=== PATIENT | female | born 1935 | race Caucasian/White ===

== ENCOUNTER 2018-10-11 14:21 | Inpatient (IN) | payer OTHER, MEDICAID ==
[~2018-10-11] VITALS: Ht 157.5 cm; Wt 38.1 kg
--- NOTE | ~2018-10-11 | PROC ---
[address] [address] PROCEDURE REPORT Name: SAM YO Room: [address] IN .R.#: [id number] Admission: 10/11/18 Attend Phys: Madhav Sullivan MD Discharge: 10/16/18 Date of : 33 Report #: [id number] THIS REPORT FOR: //name// For GI report, please see the Provation report in Perceptive 7 content. By: 0642Medical Records Staff YURI /MATTHEW
[~2018-10-11 14:21] MED LIST: ALDACTONE25 MG PO; AVAPRO 150 MG150 M1 PO; FLAGYL500 MG PO; FLORASTOR250 MG PO; LEVOTHYROXIN0.125 M1 PO; NORVASC5 MG PO; PRAVACHOL20 MG PO; TOPROL XL25 MG PO
[2018-10-11 14:39] VITALS: BP 150/63
[2018-10-11] MEDS ORDERED: PHENERGAN 25 MG25 M1 PO (14:45)
[2018-10-11] MEDS ORDERED: AIRBORNE EFFER1 EACH PO (14:47)
[2018-10-11 15:08] LABS: ABSOLUTE BASOPHILS 0.1 thou/uL (0.0-0.2); ABSOLUTE EOSINOPHILS 0.1 thou/uL (0.0-0.7); ABSOLUTE LYMPHOCYTES 1.5 thou/uL (0.8-5.3); ABSOLUTE MONOCYTES 0.8 thou/uL (0.0-1.2); ABSOLUTE NEUTROPHILS 5.5 thou/uL (1.6-8.1); BASOPHILS 1.3 %; HEMATOCRIT 33.1 % (37.0-47.0); LYMPHOCYTES 19.2 %; MCH 30.6 pg (26.0-34.0); MCHC 33.2 g/dL (28.0-37.0); MCV 92.2 fL (80.0-100.0); MONOCYTES 9.5 %; MPV 9.1 fl. (7.2-11.1); NUCLEATED RBCS 0 /100WBC; PLATELET COUNT* 266 thou/uL (150-400); RBC 3.59 mil/uL (4.20-5.00); RDW-CV 13.3 % (10.5-14.5); WBC 7.9 thou/uL (4.0-11.0)
[2018-10-11 15:24] LABS: ANION GAP 7 mmol/L (7-16); BUN 23 mg/dL (7-18); CALCIUM 9.4 mg/dL (8.5-10.1); CHLORIDE 100 mmol/L (98-107); CO2 32 mmol/L (21-32); CREATININE 1.1 mg/dL (0.6-1.3); GLUCOSE 106 mg/dL (70-99); POTASSIUM 4.3 mmol/L (3.5-5.1); SODIUM 139 mmol/L (136-145); TROPONIN-I LEVEL <0.06 ng/mL (<0.06)
[2018-10-11 15:27] LABS: ALBUMIN 2.9 g/dL (3.4-5.0); ALKALINE PHOSPHATASE 105 U/L (46-116); SGOT 14 U/L (15-37); SGPT 17 U/L (30-65); TOTAL BILIRUBIN 0.3 mg/dL (<0.1-1.0); TOTAL PROTEIN 7.3 g/dL (6.4-8.2)
[2018-10-11 16:02] LABS: URINE BILIRUBIN NEGATIVE (Negative); URINE BLOOD NEGATIVE (Negative); URINE CLARITY CLEAR; URINE COLOR YELLOW; URINE GLUCOSE-RANDOM NEGATIVE (Negative); URINE KETONES NEGATIVE (Negative); URINE LEUKOCYTES-REFLEX TRACE (Negative); URINE PROTEIN NEGATIVE (Negative); URINE SPECIFIC GRAVITY 1.025 (1.005-1.030); URINE UROBILINOGEN 0.2 E.U./dl (0.2-1.0)
[2018-10-11 16:03] LABS: URINE NITRITE-REFLEX POSITIVE (Negative)
[2018-10-11 16:10] LABS: BACTERIA-REFLEX >30 Many /HPF (None Seen); CASTS None Seen /LPF (None Seen); CRYSTALS None Seen /LPF (None Seen); URINE RBC 0-2 Rare /HPF (0-2); URINE WBC-REFLEX 6-15 Few /HPF (0-5)
[2018-10-11 16:29] LABS: SQUAMOUS NONE SEEN /LPF (0-3)
[2018-10-11 19:55] VITALS: BP 113/53
[2018-10-11 21:00] VITALS: BP 153/48
--- NOTE | 2018-10-11 21:37 | NUR ---
PT ARRIVED ON UNIT FROM ER AT 2054. PT STABLE. VITALS STABLE, CHARTED. IV IN L AC PATENT, INFUSING. PT BELONGINGS WITH PT. A&Ox4. WILL CONTINUE TO MONITOR.
--- NOTE | 2018-10-12 04:34 | NUR ---
PT REMAINED A&Ox4 THROUGHOUT SHIFT. VITALS STABLE. UP STAND BY ASSIST. IV IN L AC PATENT, INFUSING. DENIED PAIN. HOURLY ROUNGING COMPLETE. FALL PRECAUTIONS IN PLACE. CALL LIGHT WITHIN REACH. WILL CONTINUE TO MONITOR.
[2018-10-12 07:39] LABS: HEMATOCRIT 30.6 % (37.0-47.0); HEMOGLOBIN 10.2 gm/dL (12.0-15.0); MCH 30.7 pg (26.0-34.0); MCHC 33.3 g/dL (28.0-37.0); MCV 92.2 fL (80.0-100.0); MPV 9.2 fl. (7.2-11.1); NUCLEATED RBCS 0 /100WBC; PLATELET COUNT* 229 thou/uL (150-400); RBC 3.32 mil/uL (4.20-5.00); WBC 6.2 thou/uL (4.0-11.0)
[2018-10-12 07:55] LABS: CALCIUM 8.7 mg/dL (8.5-10.1); CREATININE 1.1 mg/dL (0.6-1.3); POTASSIUM 4.5 mmol/L (3.5-5.1)
[2018-10-12 08:00] VITALS: BP 132/57
[2018-10-12 09:05] LABS: ABSOLUTE LYMPHOCYTES 0.7 thou/uL (0.8-5.3); ABSOLUTE NEUTROPHILS 5.5 thou/uL (1.6-8.1); PLATELET ESTIMATE ADEQUATE
--- NOTE | 2018-10-12 12:00 | EKG ---
[place] [address] ELECTROCARDIOGRAM REPORT Name: SAM YO Room: [address] ADM IN M.R.#: [id number] Admission: 10/11/18 Attend Phys: Madhav Sullivan MD Discharge: Date of : 34 Report #: [id number] THIS REPORT FOR: //name// [facility] ED Test Date: 2018-10-11 Test Time: 14:50:57 Pat Name: SAM YO Department: Room: [facility] Gender: F Patient Office Rep: MATTHEW : 1935 Requested By: Corine Menendez Order Number: [id number] MD: Kelvin Houston Measurements Intervals [place] Rate: 70 P: 71 WI: 224 QRS: -90 QRSD: 136 T: 83 QT: 447 QTc: 483 Interpretive Statements Atrial-sensed ventricular-paced complexes No further analysis attempted due to paced rhythm Compared to ECG 10/19/2016 16:20:47 No significant changes Electronically Signed On 10-12-2018 12:00:34 HEALTH ANALYTICS CONSULTANT by Kelvin Houston [email or web address] <ELECTRONICALLY SIGNED> By: Kelvin Houston MD, FACC 10/12/18 1200 1450 1450 Kelvin Houston MD, [facility] /EPI
[2018-10-12 16:50] VITALS: BP 138/68
--- NOTE | 2018-10-12 16:55 | NUR ---
SHIFT NOTE - PT UP TO BR WITH STANDBY ASSIST MULTIPLE TIMES THIS SHIFT. FAMILY AT BEDSIDE FOR MOST OF THIS SHIFT. WILL CONTINUE TO MONITOR.
[2018-10-12 20:00] VITALS: BP 139/43
--- NOTE | 2018-10-13 04:50 | NUR ---
PT REMAINED A&Ox4 THROUHGOUT SHIFT. VITALS STABLE. IV IN L AC PATENT, SL. TYLENOL GIVEN FOR DISCOMFORT. CALL LIGHT WITHIN REACH. HOURLY ROUNDING COMPLETE. FALL PRECAUTIONS IN PLACE. WILL CONTINUE TO MONITOR.
[2018-10-13 08:00] VITALS: BP 153/53
[2018-10-13 15:51] VITALS: BP 145/37
--- NOTE | 2018-10-13 16:05 | NUR ---
SHIFT NOTE - PT TO BR WITH MINIMAL ASSIST. IV SL. DENIES ANY PAIN/NAUSEA. WILL CONTINUE TO MONITOR.
[2018-10-13 22:40] VITALS: BP 156/46
[2018-10-13 23:49] LABS: INFLUENZA A ANTIGEN None Detected (None Detect); INFLUENZA B ANTIGEN None Detected (None Detect)
--- NOTE | 2018-10-14 07:26 | NUR ---
PT SLEPT WELL. LAC SL. ROOM AIR SAT 94%, UP WITH ASSIST TO BR TO VOID WITHOUT DIFFICULTY. NO LABS THIS MORNING. RT TX GIVEN ORDERED. ICT SUPPORT TECHNICIANS COUGH HEARD. FLU SWAB NEGATIVE. POSSIBLE DISCHARGE HOME TODAY. ABLE TO USE CALL LITE AND MAKE NEEDS KNOWN.
[2018-10-14 07:50] VITALS: BP 189/50
[2018-10-14 16:24] VITALS: BP 152/51
--- NOTE | 2018-10-14 16:24 | NUR ---
ASSESSMENT COMPLETE. PT IS ALERT AND ORIENTED X4. PT HAD GI CONSULT FOR CHRONIC INCONT DIARRHEA. PT STARTED ON PREP FOR FLEX SIG TOMORROW WITH DR ATKINS. PT DENIES PAIN AND N/V. PT IS UP WITH ONE ASSIST. PT IS ON ROOM AIR, VSS. SKIN INTACT. IV IN LEFT AC, SALINE LOCKED. PT TAKES MEDICATIONS WITHOUT DIFFICULTY. PT HAS NO OTHER CONCERNS AT THIS TIME. SEE ASSESSMENT AND VITALS FOR OTHER DETAILS. CALL LIGHT WITHIN REACH, WILL CONTINUE PLAN OF CARE
--- NOTE | 2018-10-14 16:25 | NUR ---
SW met with pt to complete initial assessment, introduce self, and SW role. Pt alert, oriented, pleasant. Pt lives at home alone. Pt says she has several friends who are supportive. Pt has caregiver in home services 5 days a week for 4 hours a day who help with cooking, cleaning, etc. Pt hopeful to possible increase the caregiving hours. Pt has a RW and a cane and says she wonders about having a wc, SW discussed criteria for insurance to cover and pt said that maybe she isn't quite ready for a wc yet. Pt says she might need some type of therapy follow up as she says she feels she is weak. SW to continue to follow to assist with safe dc planning.
[2018-10-15] VITALS: BP 151/55
--- NOTE | 2018-10-15 07:20 | NUR ---
PT FINISHED MAG CITRATE PREP ORDERED JUST AFTER MIDNIGHT. LATEST STOOL LIQUID WITH SOME MUSHY BROWN PARTICLES. INSTRUCTED TO NOTIFY STAFF WITH NEXT BM, VERBALIZES UNDERSTANDING. LAC SL. UP TO BSC OVERNIGHT TO VOID AND STOOLS. NO LABS THIS MORNING. NPO AT 0800 FOR FLEX SIG THIS AFTERNOON. HAS DENIED PAIN OR PROBLEMS. O2 2L PLACED BY RT OVERNIGHT WHILE SLEEPING. PACEMAKER. ABLE TO USE CALL LITE AND MAKE NEEDS KNOWN.
[2018-10-15 07:51] VITALS: BP 148/55
[2018-10-15 12:04] VITALS: BP 141/55; BP 151/55
--- NOTE | 2018-10-15 18:25 | NUR ---
ASSESSMENT COMPLETE. PT ALERT AND ORIENTED X4. DENIES PAIN AND N/V. BOWEL PREP GIVEN OVERNIGHT FOR FLEX SIG. PT LEFT FOR PROCEDURE AROUND 1320, BACK TO UNIT AT 1825. PT DENIES ANY NEEDS AND CONCERNS. VSS. TOLERATING REGULAR DIET. SEE PROCEDURE NOTE FROM GI. PT IS FALL RISK, BED ALARM ON. SEE ASSESSMENT AND VITALS FOR OTHER DETAILS. CALL LIGHT WITHIN REACH, WILL CONTINUE PLAN OF CARE
--- NOTE | 2018-10-15 18:30 | CON ---
[address] [address] CONSULTATION Name: SANAZSAM R Room: [address] IN M.R.#: [id number] Admission: 10/11/18 Attend Phys: Madhav Sullivan MD Discharge: Date of : 34 Report #: [id number] THIS REPORT FOR: //name// CC: Madhav Yang [facility] DATE OF SERVICE: 10/14/2018 REASON FOR CONSULT: Persistent diarrhea, incontinence and urgency. HISTORY OF PRESENT ILLNESS: This is an 83-year-old female who is known to us as she has had history of C. diff in the past. The patient was initially admitted for bronchitis and possibly pneumonia. She has been receiving treatment for the same. She reports that she has significant amount of urgency and loose stool to a point that this is affecting her life. She is unable to leave the house to go to grocery stores as she is fearful that she may have an accident. She denies any significant gas and bloating. She also denies any hematochezia or melena. PAST MEDICAL HISTORY: Significant for history of hyperlipidemia, hypothyroidism, history of C. diff, chronic diarrhea and urgency, hypertension, hysterectomy, tonsillectomy, cataract surgery, coronary artery disease, peripheral vascular disease with stenting in bilateral legs, arthritis, CHF, history of pacemaker placement. ALLERGIES: SIGNIFICANT TO PENICILLIN. MEDICATIONS: Please refer to MAR. SOCIAL HISTORY: The patient lives at home alone. 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 PHYSICAL EXAMINATION: VITAL SIGNS: Reveals blood pressure of 189/50, respirations 16, pulse 70, and temperature 98.1. LUNGS: Clear. CARDIOVASCULAR: Regular. ABDOMEN: Soft, nontender, nondistended. Bowel sounds are positive. NEUROLOGIC: The patient is alert and oriented x 3. LABORATORY DATA: Reveal sodium of 138, potassium 4.5, BUN is 22, creatinine 1.1, glucose 221. WBC is 6.2 with hemoglobin of 10.2 and platelet of 229. IMAGING: CT of abdomen and pelvis was obtained on admission. There is no acute process noted in the abdomen and pelvis. There [place] [address] CONSULTATION Name: SAM YO Room: [address] IN [facility]#: [id number] Admission: 10/11/18 Attend Phys: Madhav Sullivan MD Discharge: Date of : 34 Report #: [id number] with associated prominence of bilateral renal pelvis noted. There is evidence of previous cholecystectomy, hysterectomy and appendectomy per this imaging study. ASSESSMENT AND PLAN: The patient with diarrhea, urgency and some degree of incontinence due to the same. I will consider a flex sigmoidoscopy with biopsy of the colon to assure that she does not have microscopic colitis. 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 diff infection little over a year ago. If these biopsies are negative, we may consider introducing Colestid to see if this will get her some control. <ELECTRONICALLY SIGNED> By: Matty De Souza MD 10/15/18 1830 1204 [id number] De Souza MD /nt
[2018-10-15 23:32] VITALS: BP 133/45
[2018-10-16 04:27] LABS: ABSOLUTE EOSINOPHILS 0.1 thou/uL (0.0-0.7); ABSOLUTE LYMPHOCYTES 1.2 thou/uL (0.8-5.3); ABSOLUTE MONOCYTES 0.8 thou/uL (0.0-1.2); ABSOLUTE NEUTROPHILS 7.7 thou/uL (1.6-8.1); BASOPHILS 0.2 %; CALCIUM 8.6 mg/dL (8.5-10.1); CREATININE 0.9 mg/dL (0.6-1.3); EOSINOPHILS 1.4 %; HEMATOCRIT 34.1 % (37.0-47.0); HEMOGLOBIN 11.3 gm/dL (12.0-15.0); LYMPHOCYTES 12.6 %; MCH 30.3 pg (26.0-34.0); MCV 91.8 fL (80.0-100.0); NUCLEATED RBCS 0 /100WBC; PLATELET COUNT* 233 thou/uL (150-400); POLYS 77.8 %; POTASSIUM 4.1 mmol/L (3.5-5.1); RBC 3.71 mil/uL (4.20-5.00); RDW-CV 13.5 % (10.5-14.5); WBC 9.9 thou/uL (4.0-11.0)
--- NOTE | 2018-10-16 07:08 | NUR ---
PT SLEPT WELL SHE STATES. SL IV. AM LABS DRAWN. TAKING PILLS WHOLE WITH WATER. UP WITH SBA TO BATHROOM TO VOID WITHOUT DIFFICULTY. DENIES PAIN OR PROBLEMS, ANTICIPATING DISCHARGE HOME TODAY. ABLE TO USE CALL LITE AND MAKE NEEDS KNWON.
[2018-10-16] MEDS ORDERED: VENTOLIN HFA 1818 GM INH (09:21)
[2018-10-16] MEDS ORDERED: QUESTRAN PACKET4 GM PO (09:21)
[2018-10-16] MEDS ORDERED: MUCINEX600 MG PO (09:21)
[2018-10-16] MEDS ORDERED: BENTYL 20 MG TA20 M1 PO (09:21)
[2018-10-16] MEDS ORDERED: ACIDOPHILUS1 EAC4 PO (09:24)
[2018-10-16] MEDS ORDERED: BACTRIM DS TAB1 EACH PO (09:24)
[2018-10-16 10:43] VITALS: BP 149/89
--- NOTE | 2018-10-16 10:45 | NUR ---
Following for d/c planning needs. Received order to arrange home health. Spoke with pt and she is agreeable. Pt was given choices and wants to use [facility]. Notified [facility] of d/c and they are able to accept. No other needs identified.
[2018-10-16 10:53] VITALS: BP 149/89
[2018-10-16 11:55] VITALS: BP 149/89
[2018-10-16 12:27] VITALS: BP 149/89
--- NOTE | 2018-10-16 12:32 | NUR ---
ASSESSMENT COMPLETE. PT ALERT AND ORIENTED X4. PT TOLERATING MEALS AND DENIES PAIN AND N/V. PT UP WITH ONE ASSIST. HOME HEALTH SET UP FOR PATIENT WITH CASE MANAGEMENT. DISCHARGE INSTRUCTIONS AND PRESCRIPTIONS GIVEN. PT LEFT VIA WHEELCHAIR TO PERSONAL VEHICLE WITH FAMILY. SEE ASSESSMENT AND VITALS FOR OTHER DETAILS.
--- NOTE | 2018-10-17 16:08 | PATH ---
[address] [address] PATHOLOGY RPT PROCEDURE Name: SAM YO Room: [address] IN M.R.#: [id number] Admission: 10/11/18 Date of : 33 Discharge: 10/16/18 Report #: [id number] Path Case #: [id number] [facility] Accession Number: [id number] . 01 Material submitted: . RANDOM COLON BIOPSIES . 01 Clinical history: . None provided . 02 Diagnosis: Random colon biopsies: - Normal colonic mucosa. (CHRISTINA:pit 10/17/2018) QTP/10/17/2018 . 02 Electronically signed: . Roderick Manuel MD, Pathologist NPI- [id number] . 01 Gross description: . The specimen is received in formalin, labeled "Sam Yo, random colon biopsies" and consists of multiple fragments of dodson-rocha tissue measuring 1.1 x 0.9 x 0.2 cm in aggregate which are entirely submitted in A1. (SDY; 10/16/2018) SYU/SYU . 02 Pathologist provided ICD-10: N39.0, J18.9 . 02 CPT . 968443 Specimen Comment: A courtesy copy of this report has been sent to Specimen Comment: [phone], , . Specimen Comment: Report sent to ,DR COCHRAN / DR MCCOY Performed at: [address], [place], [place] [id number] MD Rickey Mcdonald MD Phone: [phone] Performed at: 02 [facility] [address], [place], [place] [id number] MD Roderick Manuel MD Phone: [phone]
== END 2018-10-16 12:30 | disposition home health service (06) | DRG 177 ==
LOC: M.ERS 14:21 → M.TBA-ER 16:08 → M.3W 16:08
PROVIDERS: Nurse Practitioner Family; ADMIT Internal Medicine
PROC: 0DBH8ZX Excision of Cecum, Via Natural or Artificial Opening Endoscopic, Diagnostic (ICD-10-PCS; principal; 2018-10-15)
DX: J15.6 Pneumonia due to other Gram-negative bacteria (principal); E43 Unspecified severe protein-calorie malnutrition; R65.10 Systemic inflammatory response syndrome (SIRS) of non-infectious origin without acute organ dysfunction; Z68.1 Body mass index [BMI] 19.9 or less, adult; N39.0 Urinary tract infection, site not specified; J18.9 Pneumonia, unspecified organism; J20.9 Acute bronchitis, unspecified; I11.0 Hypertensive heart disease with heart failure; E78.5 Hyperlipidemia, unspecified; E03.9 Hypothyroidism, unspecified; I25.10 Atherosclerotic heart disease of native coronary artery without angina pectoris; I73.9 Peripheral vascular disease, unspecified; K64.4 Residual hemorrhoidal skin tags; B96.20 Unspecified Escherichia coli [E. coli] as the cause of diseases classified elsewhere; J45.909 Unspecified asthma, uncomplicated; K64.8 Other hemorrhoids; K52.839 Microscopic colitis, unspecified; R15.9 Full incontinence of feces; M19.90 Unspecified osteoarthritis, unspecified site; I50.9 Heart failure, unspecified; F17.210 Nicotine dependence, cigarettes, uncomplicated; I25.2 Old myocardial infarction; Z95.0 Presence of cardiac pacemaker; Z90.710 Acquired absence of both cervix and uterus; Z90.49 Acquired absence of other specified parts of digestive tract; Z95.820 Peripheral vascular angioplasty status with implants and grafts; Z79.899 Other long term (current) drug therapy; Z88.6 Allergy status to analgesic agent; Z88.0 Allergy status to penicillin

== ENCOUNTER 2019-02-07 12:20 | Inpatient (IN) | payer OTHER, MEDICAID ==
[~2019-02-07] VITALS: Ht 157.5 cm; Wt 38.1 kg
[~2019-02-07 12:20] MED LIST changes: +ACIDOPHILUS1 EAC4 PO; +AIRBORNE EFFER1 EACH PO; +BACTRIM DS TAB1 EACH PO; +BENTYL 20 MG TA20 M1 PO; +MUCINEX600 MG PO; +PHENERGAN 25 MG25 M1 PO; +QUESTRAN PACKET4 GM PO; +VENTOLIN HFA 1818 GM INH
[2019-02-07 13:14] VITALS: BP 118/43
[2019-02-07 13:50] LABS: ABSOLUTE BASOPHILS 0.1 thou/uL (0.0-0.2); ABSOLUTE EOSINOPHILS 0.2 thou/uL (0.0-0.7); ABSOLUTE LYMPHOCYTES 1.4 thou/uL (0.8-5.3); ABSOLUTE MONOCYTES 0.6 thou/uL (0.0-1.2); ABSOLUTE NEUTROPHILS 4.3 thou/uL (1.6-8.1); BASOPHILS 0.8 %; EOSINOPHILS 2.5 %; HEMATOCRIT 34.9 % (37.0-47.0); HEMOGLOBIN 11.3 gm/dL (12.0-15.0); LYMPHOCYTES 21.5 %; MCH 29.2 pg (26.0-34.0); MCHC 32.5 g/dL (28.0-37.0); MCV 89.8 fL (80.0-100.0); MONOCYTES 9.3 %; MPV 8.8 fl. (7.2-11.1); NUCLEATED RBCS 0 /100WBC; PLATELET COUNT* 233 thou/uL (150-400); POLYS 65.9 %; RBC 3.89 mil/uL (4.20-5.00); RDW-CV 14.1 % (10.5-14.5); WBC 6.5 thou/uL (4.0-11.0)
[2019-02-07 14:01] LABS: POTASSIUM 4.3 mmol/L (3.5-5.1)
[2019-02-07 14:05] LABS: ALBUMIN 3.4 g/dL (3.4-5.0); TOTAL BILIRUBIN 0.2 mg/dL (<0.1-1.0)
[2019-02-07 16:41] LABS: URINE BILIRUBIN NEGATIVE (Negative); URINE BLOOD TRACE (Negative); URINE CLARITY HAZY; URINE COLOR YELLOW; URINE GLUCOSE-RANDOM NEGATIVE (Negative); URINE KETONES NEGATIVE (Negative); URINE LEUKOCYTES-REFLEX TRACE (Negative); URINE NITRITE-REFLEX POSITIVE (Negative); URINE PROTEIN TRACE (Negative); URINE UROBILINOGEN 0.2 E.U./dl (0.2-1.0)
[2019-02-07 16:53] LABS: BACTERIA-REFLEX >30 Many /HPF (None Seen); CASTS None Seen /LPF (None Seen); CRYSTALS None Seen /LPF (None Seen); SQUAMOUS 4-10 Moderate /LPF (0-3); URINE RBC None Seen /HPF (0-2)
--- NOTE | 2019-02-07 16:54 | EKG ---
[place] [address] ELECTROCARDIOGRAM REPORT Name: SAM YO Room: [place] [address] ADM IN .R.#: [id number] Admission: 02/07/19 Attend Phys: Julio Cesar Mcgill, Discharge: Date of : 34 Report #: [id number] THIS REPORT FOR: //name// [facility] ED Test Date: 2019-02-07 Test Time: 13:52:33 Pat Name: SAM YO Department: Room: [facility] Gender: F Rail Equipment Operator: TREY : 1935 Requested By: Remberto Alonso Order Number: [id number] MD: Kelvin Houston Measurements Intervals [place] Rate: 71 P: 86 AL: 229 QRS: -90 QRSD: 139 T: 86 QT: 453 QTc: 493 Interpretive Statements Atrial-sensed ventricular-paced rhythm No further analysis attempted due to paced rhythm Compared to ECG 10/11/2018 14:50:57 No significant changes Electronically Signed On 02-07-2019 16:54:43 CDT by Kelvin Houston [email or web address] <ELECTRONICALLY SIGNED> By: Kelvin Houston MD, [facility] 02/07/19 1654 1352 1352 Kelvin Houston MD, [facility] /EPI
[2019-02-07 18:42] VITALS: BP 180/56
[2019-02-07 18:57] VITALS: BP 179/64
[2019-02-07 20:00] VITALS: BP 166/57
[2019-02-08 08:15] VITALS: BP 165/57
[2019-02-08 16:30] VITALS: BP 187/56
[2019-02-08 20:00] VITALS: BP 138/63
[2019-02-09 04:35] LABS: MCV 88.9 fL (80.0-100.0)
[2019-02-09 04:38] LABS: ABSOLUTE BASOPHILS 0.1 thou/uL (0.0-0.2); ABSOLUTE EOSINOPHILS 0.1 thou/uL (0.0-0.7); ABSOLUTE LYMPHOCYTES 1.2 thou/uL (0.8-5.3); ABSOLUTE MONOCYTES 0.6 thou/uL (0.0-1.2); ABSOLUTE NEUTROPHILS 4.2 thou/uL (1.6-8.1); BASOPHILS 1.1 %; EOSINOPHILS 2.3 %; HEMATOCRIT 34.3 % (37.0-47.0); HEMOGLOBIN 11.1 gm/dL (12.0-15.0); LYMPHOCYTES 18.7 %; MCH 28.7 pg (26.0-34.0); MCHC 32.3 g/dL (28.0-37.0); MONOCYTES 10.4 %; NUCLEATED RBCS 0 /100WBC; PLATELET COUNT* 211 thou/uL (150-400); POLYS 67.5 %; RBC 3.86 mil/uL (4.20-5.00); RDW-CV 13.8 % (10.5-14.5); WBC 6.2 thou/uL (4.0-11.0)
[2019-02-09 08:12] VITALS: BP 189/63
[2019-02-09 16:30] VITALS: BP 175/73
[2019-02-09 20:00] VITALS: BP 159/53
[2019-02-10 08:04] VITALS: BP 148/55
[2019-02-10] MEDS ORDERED: MIRALAX17 GM PO (10:16)
[2019-02-10] MEDS ORDERED: BACTRIM 400-801 EACH PO (10:17)
[2019-02-10 10:48] VITALS: BP 148/55
== END 2019-02-10 13:23 | disposition home health service (06) | DRG 863 ==
LOC: M.ERS 12:20 → M.TBA-ER 16:31 → M.ORTHSURG 16:31
PROVIDERS: Internal Medicine; Physician Assistant; ADMIT Family Medicine
DX: T81.40XA Infection following a procedure, unspecified, initial encounter (principal); E44.1 Mild protein-calorie malnutrition; K61.1 Rectal abscess; N30.00 Acute cystitis without hematuria; Z68.1 Body mass index [BMI] 19.9 or less, adult; M19.90 Unspecified osteoarthritis, unspecified site; I50.9 Heart failure, unspecified; I11.0 Hypertensive heart disease with heart failure; I25.10 Atherosclerotic heart disease of native coronary artery without angina pectoris; E86.0 Dehydration; Y83.8 Other surgical procedures as the cause of abnormal reaction of the patient, or of later complication, without mention of misadventure at the time of the procedure; Y82.8 Other medical devices associated with adverse incidents; Z90.710 Acquired absence of both cervix and uterus; Z95.0 Presence of cardiac pacemaker; Z79.1 Long term (current) use of non-steroidal anti-inflammatories (NSAID); Z79.899 Other long term (current) drug therapy; Z88.6 Allergy status to analgesic agent; Z90.49 Acquired absence of other specified parts of digestive tract; Z98.49 Cataract extraction status, unspecified eye

== ENCOUNTER 2019-10-03 11:40 | Emergency (ER) | payer MEDICARE, MEDICAID ==
[~2019-10-03] VITALS: Ht 157.5 cm; Wt 45.4 kg
[~2019-10-03 11:40] MED LIST changes: +BACTRIM 400-801 EACH PO; +MIRALAX17 GM PO
[2019-10-03] MEDS ORDERED: SPIRONOLACTONE25 MG PO (11:57)
[2019-10-03 12:14] LABS: ABSOLUTE BASOPHILS 0.1 thou/uL (0.0-0.2); ABSOLUTE EOSINOPHILS 0.1 thou/uL (0.0-0.7); ABSOLUTE LYMPHOCYTES 1.2 thou/uL (0.8-5.3); ABSOLUTE MONOCYTES 0.5 thou/uL (0.0-1.2); ABSOLUTE NEUTROPHILS 3.8 thou/uL (1.6-8.1); EOSINOPHILS 1.4 %; HEMATOCRIT 33.3 % (37.0-47.0); LYMPHOCYTES 20.5 %; MCH 30.1 pg (26.0-34.0); MCV 91.2 fL (80.0-100.0); MONOCYTES 9.1 %; MPV 8.7 fl. (7.2-11.1); NUCLEATED RBCS 0 /100WBC; PLATELET COUNT* 179 thou/uL (150-400); RBC 3.65 mil/uL (4.20-5.00); RDW-CV 14.4 % (10.5-14.5); WBC 5.6 thou/uL (4.0-11.0)
[2019-10-03 12:25] LABS: APTT 19.8 Seconds (25.0-31.3); PROTIME 10.1 Seconds (9.20-11.50)
[2019-10-03 12:40] LABS: CALCIUM 8.5 mg/dL (8.5-10.1); CREATININE 1.1 mg/dL (0.6-1.3); POTASSIUM 4.7 mmol/L (3.5-5.1)
[2019-10-03 12:54] LABS: ALBUMIN 3.3 g/dL (3.4-5.0); CK-MB MASS 1.4 ng/mL (<0.5-3.6); TOTAL BILIRUBIN 0.2 mg/dL (<0.1-1.0); TOTAL PROTEIN 6.3 g/dL (6.4-8.2)
[2019-10-03] MEDS ORDERED: NORCO 5-325 TA1 EAC1 PO (13:07)
[2019-10-03 13:22] VITALS: BP 142/46
--- NOTE | 2019-10-03 17:42 | EKG ---
[place] [address] ELECTROCARDIOGRAM REPORT Name: SANAZSAM R Room: [facility]#: [id number] Admission: 10/03/19 Attend Phys: Discharge: 10/03/19 Date of : 34 Date of Service: 10/03/19 1145 Report #: [id number] THIS REPORT FOR: //name// [facility] ED Test Date: 2019-10-03 Test Time: 11:45:57 Pat Name: SAM YO Department: Room: Gender: F Paddock Judge: : 1935 Requested By: Jeferson Trotter Order Number: [id number] MD: Wilder Blair Measurements Intervals [place] Rate: 78 P: 172 WA: 211 QRS: -90 QRSD: 132 T: 85 QT: 437 QTc: 498 Interpretive Statements Atrial-ventricular dual-paced rhythm No further analysis attempted due to paced rhythm Compared to ECG 02/07/2019 13:52:33 Atrial-sensed ventricular-paced complex(es) or rhythm no longer present Electronically Signed On 10-03-2019 17:41:06 DOUGH MIXER HELPER by Wilder Blair [email or web address] <ELECTRONICALLY SIGNED> By: Wilder Blair MD, FACC 10/03/19 1741 1145 1145 Wilder Blair MD, FAC /EPI
== END 2019-10-03 13:23 | disposition home or self-care (01) ==
LOC: M.ERS 11:40
PROVIDERS: Family Medicine
DX: R07.89 Other chest pain (principal); I11.0 Hypertensive heart disease with heart failure; I50.9 Heart failure, unspecified; M19.90 Unspecified osteoarthritis, unspecified site; I25.2 Old myocardial infarction; Z95.1 Presence of aortocoronary bypass graft; Z90.710 Acquired absence of both cervix and uterus; Z88.6 Allergy status to analgesic agent

== ENCOUNTER 2020-08-31 10:35 | Inpatient (IN) | payer MEDICARE, MEDICAID ==
[~2020-08-31] VITALS: Ht 157.5 cm; Wt 41.4 kg
[~2020-08-31 10:35] MED LIST changes: +NORCO 5-325 TA1 EAC1 PO; +SPIRONOLACTONE25 MG PO
[2020-08-31 11:19] VITALS: BP 146/42
[2020-08-31 11:37] LABS: ABSOLUTE BASOPHILS 0.1 thou/uL (0.0-0.2); ABSOLUTE EOSINOPHILS 0.2 thou/uL (0.0-0.7); ABSOLUTE LYMPHOCYTES 1.2 thou/uL (0.8-5.3); ABSOLUTE MONOCYTES 0.6 thou/uL (0.0-1.2); ABSOLUTE NEUTROPHILS 5.8 thou/uL (1.6-8.1); BASOPHILS 1.3 %; EOSINOPHILS 2.1 %; HEMATOCRIT 29.8 % (37.0-47.0); HEMOGLOBIN 9.7 gm/dL (12.0-15.0); LYMPHOCYTES 15.6 %; MCH 29.8 pg (26.0-34.0); MCHC 32.6 g/dL (28.0-37.0); MCV 91.5 fL (80.0-100.0); MONOCYTES 7.1 %; MPV 7.8 fl. (7.2-11.1); NUCLEATED RBCS 0 /100WBC; PLATELET COUNT* 377 thou/uL (150-400); POLYS 73.9 %; RBC 3.26 mil/uL (4.20-5.00); RDW-CV 14.6 % (10.5-14.5); WBC 7.8 thou/uL (4.0-11.0)
[2020-08-31 11:46] LABS: CALCIUM 9.3 mg/dL (8.5-10.1); CREATININE 1.4 mg/dL (0.6-1.3)
[2020-08-31 11:49] LABS: APTT 22.4 Seconds (25.0-31.3); PROTIME 10.3 Seconds (9.20-11.50)
[2020-08-31 11:56] LABS: ALBUMIN 3.2 g/dL (3.4-5.0); TOTAL BILIRUBIN 0.2 mg/dL (<0.1-1.0)
[2020-08-31 14:07] LABS: URINE BILIRUBIN NEGATIVE (Negative); URINE BLOOD NEGATIVE (Negative); URINE CLARITY CLEAR; URINE COLOR YELLOW; URINE GLUCOSE-RANDOM NEGATIVE (Negative); URINE KETONES NEGATIVE (Negative); URINE LEUKOCYTES-REFLEX NEGATIVE (Negative); URINE PROTEIN NEGATIVE (Negative); URINE UROBILINOGEN 0.2 E.U./dl (0.2-1.0)
[2020-08-31 14:08] LABS: URINE NITRITE-REFLEX POSITIVE (Negative)
[2020-08-31 14:23] LABS: BACTERIA-REFLEX >30 Many /HPF (None Seen); CASTS None Seen /LPF (None Seen); CRYSTALS None Seen /LPF (None Seen); SQUAMOUS 0-3 Few /LPF (0-3); URINE RBC 0-2 Rare /HPF (0-2); URINE WBC-REFLEX 0-5 Rare /HPF (0-5)
--- NOTE | 2020-08-31 14:25 | EKG ---
[place] [address] ELECTROCARDIOGRAM REPORT Name: SANAZSAM Travis Room: [facility]#: [id number] Admission: 08/31/20 Attend Phys: Discharge: Date of : 33 Date of Service: 08/31/20 1227 Report #: [id number] THIS REPORT FOR: //name// [facility] ED Test Date: 2020-08-31 Test Time: 12:27:21 Pat Name: SAM YO Department: Room: Gender: F Tester Regulator: [facility] : 1935 Requested By: Alem Benitez Order Number: [id number] MD: Gold Parks Measurements Intervals [place] Rate: 71 P: 73 GA: 219 QRS: -86 QRSD: 137 T: 85 QT: 452 QTc: 492 Interpretive Statements Atrial-sensed ventricular-paced rhythm No further analysis attempted due to paced rhythm Compared to ECG 10/03/2019 11:45:57 AV dual-paced complex(es) or rhythm no longer present Electronically Signed On 08-31-2020 14:25:24 INSPECTOR LINE by Gold Parks [email or web address] <ELECTRONICALLY SIGNED> By: Gold Parks MD, [facility] 08/31/20 1425 1227 1227 Gold Parks MD, [facility] /EPI
[2020-08-31 15:40] VITALS: BP 169/37
[2020-08-31 15:59] VITALS: BP 126/36
--- NOTE | 2020-08-31 18:22 | NUR ---
PT ADMITTED TO ROOM 218 VIA CART FROM ED, REPORT RECEIVED FROM HUBERT CARREON. PT AOX4, NO C/O PAIN OR SHORTNESS OF BREATH OR NAUSEA. PT UP SBA, WEAK AND USES A WALKER AT HOME. ADMISSION ASSESSMENT AND HX COMPLETED CHARTED, GOAL IS TO REMAIN FREE FROM NAUSEA. MEDS PER MAR, HOURLY ROUNDING OBSERVED, FALL PRECAUTIONS IN PLACE, CALL LIGHT W/IN REACH, PT IN ISO FOR COVID RULEOUT, PCR PENDING.
[2020-08-31 21:00] VITALS: BP 96/62
[2020-09-01] VITALS: BP 132/32
[2020-09-01 04:00] VITALS: BP 115/39
--- NOTE | 2020-09-01 04:35 | NUR ---
PT ALERT AND ORIENTED. WEAK, NO REPORTS OF PAIN, NAUSEA OR VOMITING THIS SHIFT. SHE WAS ABLE TO SLEEP WELL. STANDBY ASSIST. RECEIVED ALL MEDS AND FLUIDS SCHEDULED. STRESS INCONTINENCE, ROOM AIR. UNPRODUCTIVE COUGH. WEAKNESS BUT NO MORE HEADACHE. NEURO AND PULMONARY FOLLOWING.
[2020-09-01 04:48] LABS: ABSOLUTE BASOPHILS 0.1 thou/uL (0.0-0.2); ABSOLUTE EOSINOPHILS 0.2 thou/uL (0.0-0.7); ABSOLUTE LYMPHOCYTES 1.4 thou/uL (0.8-5.3); ABSOLUTE MONOCYTES 0.6 thou/uL (0.0-1.2); ABSOLUTE NEUTROPHILS 4.5 thou/uL (1.6-8.1); BASOPHILS 1.4 %; EOSINOPHILS 3.3 %; HEMATOCRIT 25.1 % (37.0-47.0); HEMOGLOBIN 8.2 gm/dL (12.0-15.0); LYMPHOCYTES 20.7 %; MCH 30.2 pg (26.0-34.0); MCHC 32.9 g/dL (28.0-37.0); MCV 91.6 fL (80.0-100.0); MONOCYTES 9.2 %; MPV 7.6 fl. (7.2-11.1); NUCLEATED RBCS 0 /100WBC; PLATELET COUNT* 310 thou/uL (150-400); POLYS 65.4 %; RBC 2.74 mil/uL (4.20-5.00); RDW-CV 14.7 % (10.5-14.5); WBC 6.8 thou/uL (4.0-11.0)
[2020-09-01 04:57] LABS: CALCIUM 8.9 mg/dL (8.5-10.1); CREATININE 1.1 mg/dL (0.6-1.3); POTASSIUM 5.1 mmol/L (3.5-5.1)
[2020-09-01 07:38] VITALS: BP 88/43
--- NOTE | 2020-09-01 07:56 | NUR ---
PT RESTING AT THIS TIME. BP DECREASED,ASYMPTOMATIC.PHYSICIAN MADE AWARE. OTHERWISE STABLE ON RA. VPACED,BBB ON MONITOR. WCTM CLOSELY
[2020-09-01 12:05] VITALS: BP 145/45
--- NOTE | 2020-09-01 13:10 | NUR ---
Pt PUI. CM spoke with Pt's friend via phone. Pt resides at home alone, friend, Paco, is her paid caregiver through her [facility]. Friend works through [employer], 4hrs/day, 5 days/week. Friend assists with housework, transportation and appointments. Pt completes ADL. Pt has a cane and walker that she can use for mobility. Hx of [facility]. Hx of [facility]. Pt does not currently have a DPOA, Pt has no family, friend is willing to be DPOA, if Pt would like to complete one appoint him. CM following for dc needs.
--- NOTE | 2020-09-01 13:59 | NUR ---
PT RESTING AT THIS TIME WITHOUT COMPLAINTS. BP AT NOON TAKEN AND RESULT REPORTED TO THIS NURSE, 44/27. BP RETAKEN WITH MANUAL CUFF AND FOUND TO BE 145/45. WILL CONTINUE TO TAKE BP MANUALLY. PCR RESULTS NEGATIVE. PHYSICIAN MADE AWARE. ISOLATION DCD AND PT TO MOVE TELE STATUS. NOTHING FURTHER AT THIS TIME.CLWR.WCTM
[2020-09-01 16:01] VITALS: BP 127/40
[2020-09-01 20:24] VITALS: BP 164/52
[2020-09-02 00:20] VITALS: BP 148/52
[2020-09-02 04:10] LABS: ABSOLUTE BASOPHILS 0.1 thou/uL (0.0-0.2); ABSOLUTE EOSINOPHILS 0.2 thou/uL (0.0-0.7); ABSOLUTE LYMPHOCYTES 1.5 thou/uL (0.8-5.3); ABSOLUTE MONOCYTES 0.6 thou/uL (0.0-1.2); ABSOLUTE NEUTROPHILS 4.2 thou/uL (1.6-8.1); BASOPHILS 1.6 %; EOSINOPHILS 3.5 %; HEMATOCRIT 25.6 % (37.0-47.0); HEMOGLOBIN 8.5 gm/dL (12.0-15.0); MCHC 33.1 g/dL (28.0-37.0); MCV 90.6 fL (80.0-100.0); MONOCYTES 8.8 %; MPV 7.8 fl. (7.2-11.1); NUCLEATED RBCS 0 /100WBC; PLATELET COUNT* 298 thou/uL (150-400); POLYS 64.1 %; RBC 2.83 mil/uL (4.20-5.00); RDW-CV 14.4 % (10.5-14.5); WBC 6.6 thou/uL (4.0-11.0)
[2020-09-02 04:38] VITALS: BP 150/50
[2020-09-02 04:39] LABS: ALBUMIN 2.6 g/dL (3.4-5.0); CALCIUM 8.8 mg/dL (8.5-10.1); CREATININE 0.9 mg/dL (0.6-1.3); MAGNESIUM 2.1 mg/dL (1.8-2.4); POTASSIUM 4.6 mmol/L (3.5-5.1); TOTAL BILIRUBIN 0.1 mg/dL (<0.1-1.0); TOTAL PROTEIN 5.9 g/dL (6.4-8.2)
[2020-09-02 07:30] VITALS: BP 117/48
--- NOTE | 2020-09-02 10:04 | NUR ---
PT IS ABLE TO COMMUNICATE HER NEEDS TO STAFF EFFECTIVELY. CURRENT PAIN MEDICATION REGIMEN HAS BEEN ADEQUATE FOR CONTROLLING HER PAIN UP TO 0700 THIS MORNING. PT WAS TRANSFERED FORM RM 118 TO RM 214 JUST AFTER 20:00 ON 09/01/20.
[2020-09-02 12:29] VITALS: BP 175/48
--- NOTE | 2020-09-02 12:36 | NUR ---
Lung biopsy today. Anticipate dc in a few days, Pt may need HH. CM to discuss with Pt if she wants to complete a DPOA. Following.
--- NOTE | 2020-09-02 13:32 | 2DMMODE ---
[place] [address] 2 D/M-MODE ECHOCARDIOGRAM Name: YOLIZETTESAM R Room: [address] ADM IN .R.#: [id number] Admission: 08/31/20 Attend Phys: Madhav Sullivan, Discharge: Date of : 33 Date of Service: 09/02/20 1332 Report #: [id number] THIS REPORT FOR: cc: Trey Pineda MD, Bruce D. MD [place], Michael J. MD [facility] ~ APPROVED REPORT Study performed: 09/02/2020 10:40:56 EXAM: Comprehensive 2D, Doppler, and color-flow Echocardiogram Patient Location: In-Patient Room #: [facility] Status: routine BSA: 1.40 HR: 65 bpm BP: 150/50 mmHg Rhythm: NSR Other Information Study Quality: Good Indications Dyspnea 2D Dimensions IVSd: 14.40 (7-11mm) LVOT Diam: 19.55 (18-24mm) LVDd: 25.29 mm PWd: 11.31 (7-11mm) Ascending Ao: 27.04 (22-36mm) LVDs: 11.37 (25-40mm) Aortic Root: 27.64 mm Volumes Left Atrial Volume (Systole) LA ESV Index: 31.60 mL/m2 Aortic Valve AoV Peak Yuriy.: 1.16 m/s AO Peak Gr.: 5.42 mmHg LVOT Max P.45 mmHg AO Mean Gr.: 3.45 mmHg LVOT Mean P.42 mmHg LVOT Max V: 0.93 m/s AO V2 VTI: 31.39 cm LVOT Mean V: 0.76 m/s TESS (VTI): 2.29 cm2 LVOT V1 VTI: 23.92 [place] [address] 2 D/M-MODE ECHOCARDIOGRAM Name: SAM YO Room: [address] IN .R.#: [id number] Admission: 08/31/20 Attend Phys: Madhav Sullivan, Discharge: Date of : 33 Date of Service: 09/02/20 1332 Report #: [id number] Mitral Valve MV Mean Gr.: 3.34 mmHg E/A Ratio: 0.67 MV Decel. Time: 473.76 ms MV E Max Yuriy.: 0.98 m/s MV PHT: 137.39 ms MVA (PHT): 1.60 cm2 TDI E/Lateral E': 24.50 E/Medial E': 19.60 Medial E' Yuriy.: 0.05 m/s Lateral E' Yuriy.: 0.04 m/s Pulmonary Valve PV Peak Yuriy.: 0.81 m/s PV Peak Gr.: 2.60 mmHg Tricuspid Valve RAP Estimate: 5.00 mmHg TR Peak Gr.: 19.04 mmHg RVSP: 24.00 mmHg PA Pressure: 24.00 mmHg Left Ventricle The left ventricle is normal size. There is normal LV segmental wall motion. Mild to moderate concentric left ventricular hypertrophy. Left ventricular systolic function is normal. LVEF is >70%. Grade I - abnormal relaxation pattern. Right Ventricle The right ventricle is normal size. The right ventricular systolic function is normal. Pacemaker lead is present in the right ventricle. Atria The left atrium size is normal. The right atrium size is normal. Aortic Valve Mild aortic valve sclerosis. No aortic regurgitation is present. There is no aortic valvular stenosis. Mitral Valve There is mitral annular calcification. Mild mitral regurgitation. Mild mitral stenosis. Tricuspid Valve The tricuspid valve is normal in structure. Trace tricuspid regurgitation. [place] [address] 2 D/M-MODE ECHOCARDIOGRAM Name: SAM YO Room: [address] IN [facility]#: [id number] Admission: 08/31/20 Attend Phys: Madhav Sullivan, Discharge: Date of : 34 Date of Service: 09/02/20 1332 Report #: [id number] Pulmonic Valve The pulmonary valve is normal in structure. There is no pulmonic valvular regurgitation. Great Vessels The aortic root is normal in size. IVC is normal in size and collapses >50% with inspiration. Pericardium There is no pericardial effusion. <Conclusion> The left ventricle is normal size. Mild to moderate concentric left ventricular hypertrophy. Left ventricular systolic function is normal. LVEF is >70%. Grade I - abnormal relaxation pattern. Pacemaker lead is present in the right ventricle. Mild aortic valve sclerosis. There is mitral annular calcification. Mild mitral regurgitation. Mild mitral stenosis. Trace tricuspid regurgitation. No pulmonary hypertension. IVC is normal in size and collapses >50% with inspiration. <ELECTRONICALLY SIGNED> By: Wilder Blair MD, FACC 09/02/20 133 31 31 Wilder Blair MD, FACC /INF
[2020-09-02 16:45] VITALS: BP 131/41
[2020-09-02 20:00] VITALS: BP 129/42
[2020-09-03] VITALS: BP 139/45
[2020-09-03 03:54] LABS: ABSOLUTE BASOPHILS 0.1 thou/uL (0.0-0.2); ABSOLUTE EOSINOPHILS 0.2 thou/uL (0.0-0.7); ABSOLUTE LYMPHOCYTES 1.3 thou/uL (0.8-5.3); ABSOLUTE MONOCYTES 0.6 thou/uL (0.0-1.2); BASOPHILS 1.4 %; EOSINOPHILS 3.4 %; HEMATOCRIT 25.2 % (37.0-47.0); HEMOGLOBIN 8.1 gm/dL (12.0-15.0); LYMPHOCYTES 20.6 %; MCH 29.5 pg (26.0-34.0); MCHC 32.2 g/dL (28.0-37.0); MCV 91.7 fL (80.0-100.0); MONOCYTES 9.6 %; NUCLEATED RBCS 0 /100WBC; PLATELET COUNT* 279 thou/uL (150-400); RBC 2.75 mil/uL (4.20-5.00); RDW-CV 14.4 % (10.5-14.5); WBC 6.1 thou/uL (4.0-11.0)
[2020-09-03 04:00] VITALS: BP 152/47
[2020-09-03 04:19] LABS: ALBUMIN 2.6 g/dL (3.4-5.0); CALCIUM 8.7 mg/dL (8.5-10.1); POTASSIUM 4.5 mmol/L (3.5-5.1); TOTAL BILIRUBIN 0.1 mg/dL (<0.1-1.0); TOTAL PROTEIN 5.7 g/dL (6.4-8.2)
--- NOTE | 2020-09-03 04:47 | NUR ---
ASSUMED PT CARE AT APPROX 1930. PT IS AWAKE AND ORIENTED X4. PT IS NOT IN RESPIRATORY DISTRESS, NO DESATURATIONS NOTED ON ROOM AIR. PT IS V-PACED ON THE POISER. PT DENIES CHEST PAIN/DISCOMFORT. NO ACUTE CHANGES THROUGHOUT THIS SHIFT. CALL LIGHT WITHIN REACH. HOURLY ROUNDING DONE FOR PT SAFETY. FALL PRECAUTIONS IN PLACE.
[2020-09-03 08:00] VITALS: BP 147/49
[2020-09-03 09:08] LABS: ANTI-DNA SCREEN <1 IU/mL (0-9); ANTI-RNP <0.2 AI (0.0-0.9)
[2020-09-03 12:00] VITALS: BP 135/40
[2020-09-03 14:00] VITALS: BP 147/39
[2020-09-03 20:00] VITALS: BP 129/40
[2020-09-04] VITALS (7 sets, daily range): BP systolic 102–165; BP diastolic 37–52
--- NOTE | 2020-09-04 07:01 | NUR ---
ASSUMED PT CARE AT APPROX 1930. PT IS AWAKE AND ORIENTED X4. PT IS NOT IN RESPIRATORY DISTRESS, NO DESATURATIONS NOTED ON ROOM AIR. PT IS AV-PACED ON THE SOLUTIONS OPERATOR. PT DENIES CHEST PAIN/DISCOMFORT.NO ACUTE CHANGES THROUGHOUT THIS SHIFT. CALL LIGHT WITHIN REACH. HOURLY ROUNDING DONE FOR PT SAFETY. HIGH FALL PRECAUTIONS IN PLACE
[2020-09-04 08:07] LABS: CALCIUM 8.7 mg/dL (8.5-10.1); CREATININE 0.9 mg/dL (0.6-1.3); POTASSIUM 4.7 mmol/L (3.5-5.1)
[2020-09-05 04:14] VITALS: BP 128/38; BP 176/47
[2020-09-05 04:35] LABS: CALCIUM 8.4 mg/dL (8.5-10.1); CREATININE 0.8 mg/dL (0.6-1.3); POTASSIUM 4.1 mmol/L (3.5-5.1)
--- NOTE | 2020-09-05 05:41 | NUR ---
ASSUMED CARE OF PT AFTER REPORT AT 1930. PT A&OX4. VSS. PHYSICAL ASSESSMENT COMPLETED AND CHARTED. PT ON RA. PT TRACING SR/1STDEG/BBB/VPACED ON TELE. PT UPSTANDBY TO BSC. PT DENIES ANY PAIN. NO EPISODE OF NAUSEA. PRODUCT PLANNER TRIED 3X FOR IV INSERTION IN AC BUT FAILED FOR CTA HEAD & NECK. PT ABLE TO SLEEP WELL ON BED. FALL PRECAUTIONS IN PLACE. CALL LIGHT WITHIN REACH.
[2020-09-05 08:00] VITALS: BP 152/52
[2020-09-05 11:36] VITALS: BP 150/47
[2020-09-05 16:32] VITALS: BP 141/41
--- NOTE | 2020-09-05 18:30 | NUR ---
RECEIVED REPORT. ASSUMED CARE OF PT AROUND 0730. AM ASSESSMENT AND VITALS COMPLETED CHARTED. MEDS PER EMAR. BARREL REPAIRER RABIA TO PLACE A LINE APPROPRIATE FOR THE CTA NECK/HEAD TOMORROW. PT HOPES TO DC AFTER THAT. PT UP TO BEDSIDE CHAIR AND COMMODE THIS SHIFT. TOLERATING DIET. NO COMPLAINTS. PT CURRENTLY RESTING IN BED. CALL LIGHT IS WITHIN REACH. HOURLY ROUNDING PERFORMED. FALL PRECAUTIONS IN PLACE.
--- NOTE | 2020-09-05 19:07 | CON ---
[address] [address] CONSULTATION Name: SAM YO Room: [address] ADM IN M.R.#: [id number] Admission: 08/31/20 Attend Phys: Madhav Sullivan MD Discharge: Date of : 34 Report #: [id number] THIS REPORT FOR: cc: Trey Pineda MD, Bruce D. MD ~ Karri Vega MD DATE OF SERVICE: 09/01/2020 CONSULT REQUESTED BY: Madhav Sullivan MD INDICATION FOR CONSULTATION: Lung infiltrate/nodule. HISTORY OF PRESENT ILLNESS: This is an 85-year-old female. Her past medical history includes an extensive history of smoking. It is not well known to me as to whether the patient currently smokes. The patient at this time is able to provide only a limited history. She is admitted with nausea, vomiting, weakness as well as dizziness and headache. She does report that she has some shortness of breath on exertion and sometimes at rest as well; however, she does not describe it to be any different from her baseline. She does have an occasional cough as well with small amounts of sputum production. The patient also does not describe any obvious change in this. There is no chest pain. She does not describe any upper respiratory complaints. No fever or chills. She does not have swelling of lower extremities or calf pain. REVIEW OF SYSTEMS: The patient's review of systems for 12 points is negative except as mentioned above. PAST MEDICAL HISTORY: Peripheral vascular disease, stents in both legs, coronary artery disease, history of myocardial infarction. I do not have any measure of her left ventricular ejection fraction available at this time. Hypertension, hysterectomy, cataract surgery, osteoarthritis, possible history of congestive heart failure, status post pacemaker, hemorrhoidectomy, rectal prolapse. SOCIAL HISTORY: There is an extensive history of smoking. She has been smoking for several decades. It appears likely to me that the patient still smokes; however, the patient did not give a definite answer in this regard. There is no known history of heavy alcohol use or illegal drug use. CURRENT MEDICATIONS: List in [facility] reviewed. HOME MEDICATIONS: List also in [facility] reviewed. FAMILY HISTORY: There is [place] [address] CONSULTATION Name: SAM YO Room: [address] IN [facility]#: [id number] Admission: 08/31/20 Attend Phys: Madhav Sullivan MD Discharge: Date of : 34 Report #: [id number] PHYSICAL EXAMINATION: GENERAL APPEARANCE: The patient was awake. She did not answer orientation questions. At the time of my evaluation, the patient was in COVID-19 isolation and therefore, I was wearing an N95 mask as well as face shield. The patient either had difficulty hearing me or was unable to understand my questions. VITAL SIGNS: She has a pulse of 73 and a blood pressure of 145/45, she was saturating 97%. She was not on supplemental oxygen, afebrile with a temperature of 37.1. HEENT: Head is normocephalic and atraumatic. Pupils are equal. NECK: Does not show raised JVP, asymmetry, mass or lymph nodes. CHEST: Symmetrical expansion on inspection and palpation. On auscultation, breath sounds are decreased. I do not hear any added sounds. HEART: Regular. There is no murmur. ABDOMEN: Soft and nontender. EXTREMITIES: Lower extremities show no edema, no calf tenderness. SKIN: Dry and intact. NEUROLOGICAL: Moves all extremities bilaterally equally and spontaneously with no focal deficit identified. LABORATORY DATA: The patient has had a CTA chest performed yesterday. I reviewed both the films as well as the report. I also compared this with the patient's CT chest performed last year. This is discussed below with the assessment and plan. CT head report is also reviewed. I also reviewed both the chest x-ray films as well as report. The patient's lab work is in [facility], this was reviewed. She has tested negative for both the COVID-19 antigen as well as PCR. ASSESSMENT/PLAN: 1. Pulmonary infiltrates/lung nodules. There are bilateral pulmonary infiltrates. The infiltrate in the left lung looked larger than the CT performed last year. 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 In addition, there is a 9 mm lung nodule, which is seen in the right lung. There can be multiple etiologies of these findings. Considering that the infiltrate in the left lung has been present for a year and has increased in size, the possibility of adenocarcinoma in situ, previously known as bronchoalveolar cell carcinoma of lung does need to be considered. Infections as well as other inflammatory process can also lead to this picture. The infiltrative change in the right lung is likely a scar. In addition, there is a nodule in the right lung, which is just below PET scan resolution. The above findings are likely not related to the patient's current illness. Regardless, I would want to treat her with broad-spectrum antibiotics including atypical coverage for a weeks' duration. The patient is on ceftriaxone already. I went ahead and added Zithromax. I [address] [place] [place] [address] CONSULTATION Name: SAM YO Room: [address] IN .R.#: [id number] Admission: 08/31/20 Attend Phys: Madhav Sullivan MD Discharge: Date of : 34 Report #: [id number] will review with Dr. Grande tomorrow morning regarding the feasibility of performing a CT-guided biopsy from the left lung. The patient will be higher than average risk of having a pneumothorax. Also there will be a possibility of a false negative result at this time and perhaps inclined to hold off on a CT-guided biopsy allowed her to recover from the current illness and obtain an outpatient PET scan first. We will review with radiologist tomorrow and then advise further. Meanwhile, I would like to check an VANESSA as well as rheumatoid arthritis factor as well. 2. Chronic obstructive pulmonary disease. The patient does appear to have significant chronic obstructive pulmonary disease, not previously diagnosed. There is no obvious sign of acute exacerbation. Regardless, considering her acute illness, I went ahead and ordered one dose of Solu-Medrol. I also did order nebulized bronchodilators. We will assess tomorrow morning regarding whether there is an indication to give more steroid. 3. Coronary artery disease/history of congestive heart failure/status post pacemaker placement. I would also like to do an echo. 4. Nausea, vomiting and dizziness/headache. The patient has been fluid resuscitated. The Neurology service is on the case. 5. History of peripheral vascular disease. Thanks for this consultation. <ELECTRONICALLY SIGNED> By: Karri Vega MD 09/05/20 [id number] Vega MD /kayla
[2020-09-05 20:00] VITALS: BP 155/50
[2020-09-06 00:37] VITALS: BP 141/52
[2020-09-06 04:48] VITALS: BP 156/54
--- NOTE | 2020-09-06 05:56 | NUR ---
ASSUMED CARE OF PT AFTER REPORT AT 1930. PT A&OX4. VSS. PHYSICAL ASSESSMENT COMPLETED AND CHARTED. PT ON RA. PT TRACING SR/1ST DEG/BBB/VPACED ON TELE. PT UPSTANDBY TO RESTROOM. PT DENIES ANY PAIN. FALL PRECAUTIONS IN PLACE. CALL LIGHT WITHIN REACH.
[2020-09-06 08:00] VITALS: BP 146/51
--- NOTE | 2020-09-06 09:47 | NUR ---
RECEIVED REPORT AROUND 0715. ASSUMED CARE. VS AND ASSESSMENT CHARTED. PT LYING IN BED. NPO INTACT FOR CT OF HEAD AND NECK. IV INSERTED PER RABIA INFUSION NURSE. IV'S INTACT. HEART MONITOR ATTACHED. NO PAIN REPORTED. MEDS GIVEN PER OCT. CALL LIGHT WITHIN REACH. WILL CONTINUE TO MONITOR.
[2020-09-06 12:47] VITALS: BP 142/43
[2020-09-06 13:52] VITALS: BP 142/43
[2020-09-06] MEDS ORDERED: CEFDINIR300 MG PO (14:27)
--- NOTE | 2020-09-06 15:08 | NUR ---
Pt discharging home today, orders and referral faxed to [facility]
--- NOTE | 2020-09-06 18:35 | NUR ---
RECEIVED DISCHARGE ORDERS. IV'S TAKEN OUT. HEART MONTIOR OFF. DISCHARGE PACKET GONE OVER WITH PT AND . COMMUNICATED UNDERSTANDING. ALL BELONGINGS LEFT WITH PT WITH NURSING STAFF VIA WHEEL CHAIR AT 1635.
--- NOTE | 2020-09-08 12:32 | CON ---
[address] [address] CONSULTATION Name: SAM YO Angy Room: [address] IN M.R.#: [id number] Admission: 08/31/20 Attend Phys: Madhav Sullivan MD Discharge: 09/06/20 Date of : 34 Report #: [id number] THIS REPORT FOR: cc: Trey Pineda MD, Bruce D. MD ~ Stepan Thomas MD DATE OF SERVICE: 09/01/2020 HISTORY OF PRESENT ILLNESS: This is an 85-year-old female patient who was not very happy when I saw her. She says too many testing has been done on her. She also believes that she does not have COVID and she is not sure why that diagnosis was considered. So I could not get a very good history on this patient and I could not get a very good evaluation in this patient. She was complaining of headache and dizziness when she came in. She does not appear to be in any obvious distress, but she is not very happy and therefore, history is not very clear. Headache was in the frontotemporal area, but does not appear to be very severe at the moment. She had some diarrhea and nausea, all of it is better. REVIEW OF SYSTEMS: I attempted 14-point review of systems from the patient. She was not in good mood, so I could not do much examination in this patient or get a very good history, but she does have a history of hypertension, hysterectomy, cataracts, TN, stents, arthritis, pacemaker, hemorrhoidectomy, rectal prolapse, emphysema. She has a history of smoking as per records. This is a relevant 14-point review of system I can carry out. PAST MEDICAL HISTORY: Negative for any significant headache or stroke. FAMILY HISTORY: Unremarkable. SOCIAL HISTORY: For smoking. PHYSICAL EXAMINATION: Pretty limited. She is alert. She is responsive. She can follow simple commands. Her speech looks intact. She is oriented. Cranial nerve examination, the best I could carry out does not appear to be showing any abnormality. She moves all 4 extremities. Strength looks symmetrical. I do not see any meningeal sign. She is thinly built individual. Her hearing and vision looks adequate. Blood pressure is 127/40, respiration is 18, pulse is 73, temperature is 97.8. LABORATORY DATA: She does have increased sed rate. IMPRESSION: This patient is predisposed to multiple things because of her history of smoking and age, I think she needs more workup, [place] [address] CONSULTATION Name: SAM YO Room: [address] IN ..#: [id number] Admission: 08/31/20 Attend Phys: Madhav Sullivan MD Discharge: 09/06/20 Date of : 34 Report #: [id number] complaining of all the workup which was done and she wants to talk to the doctor before that. Therefore, I will plan to see her tomorrow and hopefully, she will be in a better mood and I will also talk to the hospitalist. A CT looks unremarkable. If MRI needs to be done, we need to see if the pacemaker is compatible with MRI and even then it takes time to set up. I will talk with hospitalist tomorrow and we will try to reevaluate this patient tomorrow. Thank you very much. <ELECTRONICALLY SIGNED> By: Stepan Thomas MD 09/08/20 1232 [id number] Thomas MD /nt
== END 2020-09-06 16:35 | disposition home health service (06) | DRG 177 ==
LOC: M.ERS 10:35 → M.2W 15:38 → M.TBA-ER 15:38 → M.ORTHSURG 15:38 → M.2W 09-01 19:50
PROVIDERS: Internal Medicine; Internal Medicine Critical Care Medicine; Nurse Practitioner Family; Psychiatry & Neurology Neuromuscular Medicine; ADMIT Internal Medicine; ATTEND Internal Medicine
DX: J15.6 Pneumonia due to other Gram-negative bacteria (principal); E43 Unspecified severe protein-calorie malnutrition; N30.01 Acute cystitis with hematuria; Z68.1 Body mass index [BMI] 19.9 or less, adult; M19.90 Unspecified osteoarthritis, unspecified site; I11.0 Hypertensive heart disease with heart failure; I25.10 Atherosclerotic heart disease of native coronary artery without angina pectoris; I50.9 Heart failure, unspecified; J43.9 Emphysema, unspecified; R51.9 Headache, unspecified; I73.9 Peripheral vascular disease, unspecified; R91.8 Other nonspecific abnormal finding of lung field; I95.1 Orthostatic hypotension; I65.23 Occlusion and stenosis of bilateral carotid arteries; F17.200 Nicotine dependence, unspecified, uncomplicated; Z20.822 Contact with and (suspected) exposure to COVID-19; Z90.710 Acquired absence of both cervix and uterus; I25.2 Old myocardial infarction; Z95.0 Presence of cardiac pacemaker; Z88.8 Allergy status to other drugs, medicaments and biological substances; Z79.899 Other long term (current) drug therapy; Z98.42 Cataract extraction status, left eye; Z98.41 Cataract extraction status, right eye

== ENCOUNTER 2021-01-13 19:45 | Inpatient (IN) | payer MEDICARE, MEDICAID ==
[~2021-01-13] VITALS: Ht 157.5 cm; Wt 36.3 kg
[~2021-01-13 19:45] MED LIST changes: +CEFDINIR300 MG PO; +PRAVACHOL 20 MG20 M1 PO; -PRAVACHOL20 MG PO
[2021-01-13 20:00] VITALS: BP 165/41
[2021-01-13] MEDS ORDERED: PLAVIX 75 MG TA75 MG PO (20:09)
[2021-01-13 20:44] LABS: ABSOLUTE BASOPHILS 0.1 thou/uL (0.0-0.2); ABSOLUTE EOSINOPHILS 0.1 thou/uL (0.0-0.7); ABSOLUTE LYMPHOCYTES 0.7 thou/uL (0.8-5.3); ABSOLUTE MONOCYTES 0.6 thou/uL (0.0-1.2); ABSOLUTE NEUTROPHILS 7.3 thou/uL (1.6-8.1); BASOPHILS 0.8 %; EOSINOPHILS 0.8 %; HEMATOCRIT 25.3 % (37.0-47.0); HEMOGLOBIN 8.1 gm/dL (12.0-15.0); LYMPHOCYTES 7.8 %; MCH 27.6 pg (26.0-34.0); MCHC 32.2 g/dL (28.0-37.0); MCV 85.9 fL (80.0-100.0); NUCLEATED RBCS 0 /100WBC; PLATELET COUNT* 259 thou/uL (150-400); POLYS 83.6 %; RBC 2.94 mil/uL (4.20-5.00); RDW-CV 28.1 % (10.5-14.5); WBC 8.7 thou/uL (4.0-11.0)
[2021-01-13 21:11] LABS: CALCIUM 8.7 mg/dL (8.5-10.1); CREATININE 1.3 mg/dL (0.6-1.3); POTASSIUM 4.3 mmol/L (3.5-5.1)
[2021-01-13 21:15] LABS: ALBUMIN 3.1 g/dL (3.4-5.0); TOTAL BILIRUBIN 0.3 mg/dL (<0.1-1.0); TOTAL PROTEIN 6.1 g/dL (6.4-8.2)
[2021-01-13 21:51] LABS: ANISOCYTOSIS 1+; HYPOCHROMASIA 1+; PLATELET ESTIMATE ADEQUATE
[2021-01-13 21:52] LABS: LARGE PLATELETS OCCASIONAL
[2021-01-13 22:31] LABS: URINE BILIRUBIN NEGATIVE (Negative); URINE BLOOD TRACE (Negative); URINE COLOR YELLOW; URINE GLUCOSE-RANDOM NEGATIVE (Negative); URINE KETONES NEGATIVE (Negative); URINE LEUKOCYTES-REFLEX 1+ (Negative); URINE NITRITE-REFLEX NEGATIVE (Negative); URINE PROTEIN NEGATIVE (Negative); URINE SPECIFIC GRAVITY 1.025 (1.005-1.030); URINE UROBILINOGEN 0.2 E.U./dl (0.2-1.0)
[2021-01-13 22:32] LABS: URINE CLARITY HAZY
[2021-01-13 22:42] LABS: BACTERIA-REFLEX >30 Many /HPF (None Seen); CRYSTALS None Seen /LPF (None Seen); FINE GRANULAR CASTS 0-3 Few /LPF (None Seen); SQUAMOUS >10 Many /LPF (0-3); URINE RBC 0-2 Rare /HPF (0-2); URINE WBC-REFLEX 6-15 Few /HPF (0-5)
[2021-01-14 02:45] VITALS: BP 151/47
[2021-01-14 02:54] VITALS: BP 162/48
--- NOTE | 2021-01-14 07:33 | NUR ---
PATIENT ARRIVED ON FLOOR FROM ER AT 0230. PATIENT ADMISSION HISTORY AND ASSESSMENT WAS COMPLETED CHARTED. IV FLUIDS WERE STARTED AT 75 ML/HR. PATIENT HAS HAD NO NAUSEA OR DIARRHEA SINCE ARRIVAL TO THE FLOOR. PATIENT PLACED IN CDIFF PRECAUTIONTS BUT STILL SAMPLE STILL NEEDED. WILL CONTINUE TO MONITOR.
[2021-01-14 07:35] VITALS: BP 176/42
--- NOTE | 2021-01-14 09:56 | EKG ---
[place] [address] ELECTROCARDIOGRAM REPORT Name: SANAZSAM Angy Room: [address] ADM IN .R.#: [id number] Admission: 01/14/21 Attend Phys: Arslan Figueroa Discharge: Date of : 33 Date of Service: 01/13/212005 Report #: [id number] THIS REPORT FOR: //name// [facility] ED Test Date: 2021-01-13 Test Time: 20:06:08 Pat Name: SAM YO Department: Room: [facility] Gender: F Building Maintenance Worker: : 1935 Requested By: Ronna Adamson Order Number: [id number] MD: Gold Parks Measurements Intervals Lena Rate: 78 P: 84 MD: 219 QRS: -85 QRSD: 135 T: 84 QT: 437 QTc: 498 Interpretive Statements Atrial-sensed ventricular-paced complexes No further analysis attempted due to paced rhythm Compared to ECG 08/31/2020 12:27:21 No significant changes Electronically Signed On 01-14-2021 9:56:21 CDT by Gold Parks [email or web address] <ELECTRONICALLY SIGNED> By: Gold Parks MD, [facility] 01/14/21 0956 05 05 Gold Parks MD, [facility] /EPI
--- NOTE | 2021-01-14 10:37 | NUR ---
Nutrition: Pt admitted with dehydration, weakness. Consult for "low BMI." Usual wt 80-90#. Current wt: 80#. Underweight R/T advanced age and body frame AEB BMI <18.5, 85 y/o. Pt on CLD. Advance to heart healthy as able. IVF @ 75mL. BG 152, albumin 3.1. No N/V since admit. In c. diff precautions for now. Ordered Ensure Clear for added nutrition. Mild risk.
--- NOTE | 2021-01-14 14:15 | NUR ---
Pt is A&O. Resides at home alone. Pt's friend is her paid caregiver through her [facility], for 4hrs/day, 5 days/week. Pt is independent with ADLs. CG completes IADLs. Pt has a walker and cane for mobility. Hx of HH with [facility]. Hx of skilled at [facility]. Anticipate dc to home tomorrow with HH, [place] from [facility] to see today.
--- NOTE | 2021-01-14 15:59 | NUR ---
[facility] NURSE Leo nAVIGATOR NOTE: Referral received from Yumiko, met with patient. Patient would love Services. Discussed her needs, she is homeboud, she does not drive. She gets food from [employer], would like a homemaker. Will alert our SW to look at resources for her. Informed Yumiko of all this and faxed initial paperwork in to [facility].
[2021-01-14 16:00] VITALS: BP 140/80
--- NOTE | 2021-01-14 16:34 | NUR ---
[facility] WOULD LIKE DISCHARGE ORDERS FAXED TO THEM AT [phone]
--- NOTE | 2021-01-14 17:46 | NUR ---
PT REMAINED ALERT AND ORIENTED. PT GRUMPY THIS MORNING, AFTER DOCTOR SAW PATIENT SHE BECAME HAPPIER AND UNDERSTOOD MORE ABOUT PLAN OF CARE. PT UP TO CHAIR FOR MEALS AND THROUGHT DAY. FALL RISK PRECAUTIONS IN PLACE. PT DID NOT HAVE A BM TODAY TO COLLECT FOR A STOOL SAMPLE. HOURLY ROUNDING COMPLETED.
[2021-01-14 20:00] VITALS: BP 148/89
--- NOTE | 2021-01-15 04:38 | NUR ---
PT A&O X 4. ON RA. MEDS GIVEN ORDERED. UP TO THE BR WITH SBA. DENIED PAIN. PT SLEPT MOST OF THE NIGHT. CALL LIGHT WITHIN REACH. WILL CONTINUE TO MONITOR.
[2021-01-15 07:20] VITALS: BP 159/64
[2021-01-15 09:51] VITALS: BP 159/64
[2021-01-15 16:32] VITALS: BP 147/49
--- NOTE | 2021-01-15 16:43 | NUR ---
PT REMAINED ALERT AND ORIENTED. PT RESTING IN BED AND UP FOR MEALS. PT HAD SOLID BM TODAY, PT TAKEN OUT OF ISOLATION. CALL LIGHT WITHIN REACH. FALL RISK PRECAUTIONS IN PLACE. HOURLY ROUNDING COMPLETED.
[2021-01-15 20:50] VITALS: BP 140/40
[2021-01-16 04:01] LABS: CALCIUM 8.3 mg/dL (8.5-10.1); CREATININE 0.8 mg/dL (0.6-1.3); POTASSIUM 4.2 mmol/L (3.5-5.1)
[2021-01-16 04:05] LABS: HEMATOCRIT 24.9 % (37.0-47.0); HEMOGLOBIN 7.9 gm/dL (12.0-15.0); MCH 27.6 pg (26.0-34.0); MCHC 31.8 g/dL (28.0-37.0); MCV 86.7 fL (80.0-100.0); MPV 8.7 fl. (7.2-11.1); RBC 2.87 mil/uL (4.20-5.00); RDW-CV 27.6 % (10.5-14.5); WBC 5.7 thou/uL (4.0-11.0)
--- NOTE | 2021-01-16 06:22 | NUR ---
PT AO X4 UP TO BSC SEVERAL TIMES THROUGHOUT THE NIGHT, SHE LOST ACCESS TO HER IV AND NEW ACCESS ESTABLISHED IN LT WRIST. PT SLEPT WELL . BED ALARM ON FOR SAFETY, CALL LIGHT WITHIN REACH.
[2021-01-16 07:20] VITALS: BP 147/66
[2021-01-16 16:32] VITALS: BP 148/45
[2021-01-16 17:49] VITALS: BP 159/64
--- NOTE | 2021-01-16 18:53 | NUR ---
PT REMAINED ALERT AND ORIENTED. PT AWAITING DISCHARGE ORDERS FROM DOCTOR. FALL RISK PRECAUTIONS IN PLACE. HOURLY ROUNDING COMPLETED.
--- NOTE | 2021-01-16 19:24 | NUR ---
PT GIVEN DISCHARGE INFORMATION. IV REMOVED. PT BELONGINGS GATHERED. PT LEFT VIA WHEELCHAIR WITH NURSING STAFF TO HOME.
--- NOTE | 2021-01-17 15:29 | NUR ---
[facility]: Met with this patient on Sunday and she wanted to have us for Home Health. She was discharged yesterday and the dc summary is unfinished and no hh orders. Patient was not given dc instructions at time of dc that included hh. Called her and she really wants and needs the help of home health. Have contacted hospitalist, Dr. tesfaye to finish this dc summary to include hh and we will most likely have SOC tomorrow. Have given comfort and reassurance to the patient.
== END 2021-01-16 19:25 | disposition home health service (06) | DRG 689 ==
LOC: M.ERS 19:45 → M.ORTHSURG 01-14 00:26 → M.TBA-ER 01-14 00:26 → M.ORTHSURG 01-14 02:26
PROVIDERS: Emergency Medicine; Internal Medicine; ADMIT Internal Medicine; ATTEND Internal Medicine
DX: N39.0 Urinary tract infection, site not specified (principal); E43 Unspecified severe protein-calorie malnutrition; Z68.1 Body mass index [BMI] 19.9 or less, adult; R91.8 Other nonspecific abnormal finding of lung field; I11.0 Hypertensive heart disease with heart failure; B96.89 Other specified bacterial agents as the cause of diseases classified elsewhere; D64.9 Anemia, unspecified; I50.9 Heart failure, unspecified; M19.90 Unspecified osteoarthritis, unspecified site; R19.7 Diarrhea, unspecified; K59.09 Other constipation; J43.9 Emphysema, unspecified; Z20.822 Contact with and (suspected) exposure to COVID-19; Z95.0 Presence of cardiac pacemaker; Z79.01 Long term (current) use of anticoagulants; Z90.710 Acquired absence of both cervix and uterus; I25.2 Old myocardial infarction; Z98.49 Cataract extraction status, unspecified eye; Z79.899 Other long term (current) drug therapy; Z88.8 Allergy status to other drugs, medicaments and biological substances